=== PATIENT | male | born 1960 | race Caucasian/White ===

== ENCOUNTER 2019-12-07 19:41 | Emergency (ER) | payer BC, OTHER ==
--- NOTE | 2019-12-07 20:14 | EDM.PDOC ---
ED HPI GENERAL MEDICAL PROBLEM - General Chief Complaint: Cardiovascular Problem Stated Complaint: RHB Time Seen by Provider: 12/07/19 19:52 Source of Information: Reports: Patient, RN Notes Reviewed History Limitations: Reports: No Limitations - History of Present Illness INITIAL COMMENTS - FREE TEXT/NARRATIVE: Patient is a 59-year-old male who presents to the ED for evaluation of his rapid heartbeat. The patient states that he normally does over the road bicycling, and can go anywhere from 48 to 50 miles on a ride. Patient notes that he does workout quite a bit and feels as if he is pretty athletic. The patient notes that after these bike rides, his heart rate takes about 1/2-hour to come back to a normal level, roughly in the 80s, but he states that he has been kind of sick the last week or so, and he went for his bike ride today, and his heart rate did not seem to decrease the way it normally does. He notes it was still in the low 100s prior to arrival to the ER. He notes that his blood pressure was normal at this time. Patient notes that he was tested for COVID- 19 and this was negative, as he states he had some of the symptoms of the virus. Patient thought maybe he does push himself too hard due to being sick for the past week or 2. Patient also notes a history of anxiety, and takes 0.25 mg of alprazolam, as needed for anxiety. Patient states that he had a feeling like this, a night or 2 ago and took the alprazolam and it did seem to help. He states he did not take any of this prior to the arrival to the ER. Patient notes that his father did have heart issues and in his early 30s from these. His primary care provider is Dr. Brooks. - Related Data Allergies Allergy/AdvReac Type Severity Reaction Status Date / Time No Known Allergies Allergy Verified 12/07/19 19:52 Home Meds: Home Meds ALPRAZolam [Alprazolam] 0.25 mg PO ASDIRECTED 12/07/19 [History] Aspirin 81 mg PO DAILY 12/07/19 [History] Ezetimibe [Zetia] 10 mg PO DAILY 12/07/19 [History] Omeprazole Magnesium [Prilosec Otc] 20 mg PO DAILY 12/07/19 [History] hydroCHLOROthiazide [Hydrochlorothiazide] 12.5 mg PO DAILY 12/07/19 [History] metFORMIN [Glucophage] 1,000 mg PO BIDMEALS 12/07/19 [History] Past Medical History Cardiovascular History: Reports: High Cholesterol, Hypertension Gastrointestinal History: Reports: GERD Psychiatric History: Reports: Anxiety Endocrine/Metabolic History: Reports: Diabetes, Type II Dermatologic History: Reports: Other (See Below) Other Dermatologic History: lumpectomy to posterior neck - Past Surgical History Male Surgical History: Reports: Vasectomy Social & Family History - Tobacco Use Smoking Status *Q: Never Smoker - Caffeine Use Caffeine Use: Reports: None, Coffee Other Caffeine Use: 6-8 cups of coffee or more daily - Recreational Drug Use Recreational Drug Use: No ED ROS GENERAL - Review of Systems Review Of Systems: See Below Constitutional: Denies: Fever, Chills, Malaise, Decreased Appetite Respiratory: Denies: Shortness of Breath, Cough Cardiovascular: Reports: Palpitations (feels as if his heart is beating fast). Denies: Chest Pain, Lightheadedness GI/Abdominal: Denies: Nausea Neurological: Denies: Headache Psychiatric: Reports: Anxiety ED EXAM, GENERAL - Physical Exam Exam: See Below Exam Limited By: No Limitations General Appearance: Alert, WD/WN, No Apparent Distress, Anxious (mildly) Eye Exam: Bilateral Eye: EOMI, Normal Inspection, PERRL Ears: Normal External Exam Nose: Normal Inspection Throat/Mouth: Normal Inspection, Normal Lips, Normal Teeth, Normal Gums, Normal Oropharynx, Normal Voice, No Airway Compromise Head: Atraumatic, Normocephalic Neck: Normal Inspection Respiratory/Chest: No Respiratory Distress, Lungs Clear, Normal Breath Sounds, No Accessory Muscle Use, Chest Non-Tender Cardiovascular: Normal Peripheral Pulses, Regular Rate, Rhythm, No Edema, No Murmur Peripheral Pulses: 3+: Radial (L), Radial (R) GI/Abdominal: Normal Bowel Sounds, Soft, Non-Tender, No Distention, No Mass Extremities: Normal Inspection, Normal Capillary Refill Neurological: Alert, Oriented, Normal Cognition, No Motor/Sensory Deficits Psychiatric: Normal Affect, Normal Mood, Anxious (mildly) Skin Exam: Warm, Dry, Intact, Normal Color, No Rash EKG INTERPRETATION EKG Date: 12/07/19 Time: 19:46 Rhythm: Other (sinus tach) Rate (Beats/Min): 103 Farrar: Normal P-Wave: Present QRS: Normal ST-T: Normal QT: Normal Comparison: NA - No Prior EKG EKG Interpretation Comments: no acute ischemic change noted, reviewed by myself and Dr. Allen. Course - Vital Signs Last Recorded V/S: Last Vital Signs Temp 98.7 F 12/07/19 19:46 Pulse 105 H 12/07/19 19:46 Resp 19 12/07/19 19:46 BP 170/94 H 12/07/19 19:46 Pulse Ox 98 12/07/19 19:46 - Orders/Labs/Meds Orders: Active Orders 24 hr Category Date Time Status EKG Documentation Completion [RC] STAT Care 12/07/19 19:55 Ordered Holter Monitor 48 Hours [RC] .PRN Care 12/07/19 21:08 Ordered Chest 1V Frontal [CR] Stat Exams 12/07/19 20:08 Ordered Labs: Laboratory Tests 12/07/19 12/07/19 12/07/19 Range/Units 20:15 20:15 20:15 WBC 10.31 H (4.23-9.07) K/mm3 RBC 5.37 (4.63-6.08) M/mm3 Hgb 16.2 (13.7-17.5) gm/dl Hct 45.2 (40.1-51.0) % MCV 84.2 (79.0-92.2) fl MCH 30.2 (25.7-32.2) pg MCHC 35.8 H (32.2-35.5) g/dl RDW Std Deviation 36.0 (35.1-43.9) fL Plt Count 255 (163-337) K/mm3 MPV 8.6 L (9.4-12.3) fl Neutrophils % (Manual) 66 H (40-60) % Band Neutrophils % 0 (0-10) % Lymphocytes % (Manual) 31 (20-40) % Atypical Lymphs % 1 % Monocytes % (Manual) 2 (2-10) % Eosinophils % (Manual) 0 L (0.8-7.0) % Basophils % (Manual) 0 L (0.2-1.2) Platelet Estimate Adequate RBC Morph Comment Normal PT 10.6 (9.7-12.0) SECONDS INR 0.97 APTT 25 (22-31) SECONDS Sodium 139 (136-145) mEq/L Potassium 3.2 L (3.5-5.1) mEq/L Chloride 100 (98-107) mEq/L Carbon Dioxide 28 (21-32) mEq/L Anion Gap 14.2 (5-15) BUN 15 (7-18) mg/dL Creatinine 1.2 (0.7-1.3) mg/dL Est Cr Clr Drug Dosing 2.31 mL/min Estimated GFR (MDRD) > 60 (>60) mL/min BUN/Creatinine Ratio 12.5 L (14-18) Glucose 142 H (74-106) mg/dL Calcium 9.1 (8.5-10.1) mg/dL Magnesium 1.6 L (1.8-2.4) mg/dl Total Bilirubin 0.6 (0.2-1.0) mg/dL AST 43 H (15-37) U/L ALT 64 H (16-63) U/L Alkaline Phosphatase 78 (46-116) U/L Troponin I < 0.017 (0.00-0.056) ng/mL NT-Pro-B Natriuret Pep (0-125) pg/mL Total Protein 7.8 (6.4-8.2) g/dl Albumin 4.3 (3.4-5.0) g/dl Globulin 3.5 gm/dL Albumin/Globulin Ratio 1.2 (1-2) /02/19 Range/Units 20:15 WBC (4.23-9.07) K/mm3 RBC (4.63-6.08) M/mm3 Hgb (13.7-17.5) gm/dl Hct (40.1-51.0) % MCV (79.0-92.2) fl MCH (25.7-32.2) pg MCHC (32.2-35.5) g/dl RDW Std Deviation (35.1-43.9) fL Plt Count (163-337) K/mm3 MPV (9.4-12.3) fl Neutrophils % (Manual) (40-60) % Band Neutrophils % (0-10) % Lymphocytes % (Manual) (20-40) % Atypical Lymphs % % Monocytes % (Manual) (2-10) % Eosinophils % (Manual) (0.8-7.0) % Basophils % (Manual) (0.2-1.2) Platelet Estimate RBC Morph Comment PT (9.7-12.0) SECONDS INR APTT (22-31) SECONDS Sodium (136-145) mEq/L Potassium (3.5-5.1) mEq/L Chloride (98-107) mEq/L Carbon Dioxide (21-32) mEq/L Anion Gap (5-15) BUN (7-18) mg/dL Creatinine (0.7-1.3) mg/dL Est Cr Clr Drug Dosing mL/min Estimated GFR (MDRD) (>60) mL/min BUN/Creatinine Ratio (14-18) Glucose (74-106) mg/dL Calcium (8.5-10.1) mg/dL Magnesium (1.8-2.4) mg/dl Total Bilirubin (0.2-1.0) mg/dL AST (15-37) U/L ALT (16-63) U/L Alkaline Phosphatase (46-116) U/L Troponin I (0.00-0.056) ng/mL NT-Pro-B Natriuret Pep 16 (0-125) pg/mL Total Protein (6.4-8.2) g/dl Albumin (3.4-5.0) g/dl Globulin gm/dL Albumin/Globulin Ratio (1-2) - Re-Assessments/Exams Free Text/Narrative Re-Assessment/Exam: 12/07/19 20:15 Patient presents to the ED for the evaluation of what he perceived to be was a rapid heartbeat. Patient is just mildly tachycardic at 103-105 when I was in the room. Patient is not in any other distress. EKG was essentially within normal limits, with no acute ischemic change noted. Labs to be drawn to rule out any other myocardial injury or etiology, plan is to try to send the patient home with a Holter monitor, this does appear to be more anxiety related than anything. 12/07/19 21:09 Patient's laboratory evaluation demonstrates essentially normal CBC, patient's magnesium level is mildly low at 1.6, potassium is also mildly low at 3.2. This can likely be supplemented with dietary intake. I will order a 48-hour Holter monitor at this time, and send the patient home and follow-up with Dr. Todd Departure - Departure Time of Disposition: 21:10 Disposition: Home, Self-Care 01 Condition: Fair Clinical Impression: Sinus tachycardia by electrocardiogram, Anxiety about health Instructions: Living With Anxiety Referrals: Fletcher Brooks Jr, MD [Primary Care Provider] - Forms: ED Department Discharge Additional Instructions: You were evaluated in the ED for your rapid heart beat. Your workup in the ED was essentially unremarkable. Your potassium and magnesium level were very mildly low, this can be supplemented with dietary intake. Your EKG was within normal limits, but you did have a sinus tachycardia. You have been given a 48 hour holter monitor for further evaluation of your rapid heart rate. This is a monitor that you should wear continuously for the next 48 hours. You will need to follow up with your primary care provider in the next week or so for results of this. You may try to take your alprazolam when you are having these episodes, to see if this doesn't make things better. Please return to the ED if your symptoms change or worsen. Sepsis Event Note - Evaluation Sepsis Screening Result: No Definite Risk - Focused Exam Vital Signs: Vital Signs Temp Pulse Resp BP Pulse Ox 12/07/19 19:46 98.7 F 105 H 19 170/94 H 98 Date Exam was Performed: 12/07/19 Time Exam was Performed: 21:09 - My Orders Last 24 Hours: My Active Orders 12/07/19 19:55 EKG Documentation Completion [RC] STAT 12/07/19 20:08 Chest 1V Frontal [CR] Stat 12/07/19 21:08 Holter Monitor 48 Hours [RC] .PRN - Assessment/Plan Last 24 Hours: My Active Orders 12/07/19 19:55 EKG Documentation Completion [RC] STAT 12/07/19 20:08 Chest 1V Frontal [CR] Stat 12/07/19 21:08 Holter Monitor 48 Hours [RC] .PRN
--- NOTE | 2019-12-08 08:37 | CR ---
Chest: Portable view of the chest was obtained. Comparison: No prior chest imaging is available. Heart size and mediastinum are normal. Lungs are clear with no acute parenchymal change. Bony structures are grossly intact. Impression: 1. Nothing acute is appreciated on portable chest x-ray. Diagnostic code #1 This report was dictated in MDT
== END 2019-12-07 21:41 | disposition home or self-care (01) ==
LOC: JD.ED 19:41
DX: R00.0 Tachycardia, unspecified (principal); F41.9 Anxiety disorder, unspecified; I10 Essential (primary) hypertension; E78.00 Pure hypercholesterolemia, unspecified; K21.9 Gastro-esophageal reflux disease without esophagitis; E11.9 Type 2 diabetes mellitus without complications; Z79.84 Long term (current) use of oral hypoglycemic drugs; Z79.899 Other long term (current) drug therapy
CPT/HCPCS: 36415; 71045; 71045-26; 80053; 83735; 83880; 84484; 85007; 85027; 85610; 85730; 93005; 93010; 93225; 93226; 99283; 99285-25

== ENCOUNTER 2023-10-04 21:25 | Emergency (ER) | payer OTHER ==
[2023-10-04] MEDS ORDERED: Lidocaine 1% 10 ML MDV INJECT ONE (21:48)
== END 2023-10-04 22:47 | disposition home or self-care (01) ==
LOC: JD.ED 21:25
DX: S61.216A Laceration without foreign body of right little finger without damage to nail, initial encounter (principal); I10 Essential (primary) hypertension; E11.9 Type 2 diabetes mellitus without complications; K21.9 Gastro-esophageal reflux disease without esophagitis; E78.00 Pure hypercholesterolemia, unspecified; Z79.84 Long term (current) use of oral hypoglycemic drugs; Z79.82 Long term (current) use of aspirin; Z79.899 Other long term (current) drug therapy
CPT/HCPCS: 12002; 99282